=== PATIENT | female | born 1995 | race American Indian/Alaskan Native ===

== ENCOUNTER 2016-10-10 15:32 | Emergency (ER) | payer MEDICAID ==
[2016-10-10 16:56] LABS: Basophils % (Auto) 0.1 % (0.0-1.8); Eosinophils % (Auto) 1.9 % (0.0-4.3); Hematocrit 43.4 % (30.3-42.9); Mean Corpuscular HGB Conc 32 % (30-34); Mean Corpuscular Hemoglobin 28 pg (28-32); Mean Corpuscular Volume 86 fl (79-97); Platelet Count 272 K/mm3 (140-440); Red Blood Count 5.04 M/mm3 (3.65-5.03); Red Cell Distribution Width 14.6 % (13.2-15.2); White Blood Count 6.1 K/mm3 (4.5-11.0)
[2016-10-10 17:10] LABS: Anion Gap 17 mmol/L; Blood Urea Nitrogen 6 mg/dL (7-17); Calcium 9.2 mg/dL (8.4-10.2); Carbon Dioxide 24 mmol/L (22-30); Chloride 100.7 mmol/L (98-107); Glucose 97 mg/dL (65-100); Potassium 4.1 mmol/L (3.6-5.0); Sodium 138 mmol/L (137-145)
[2016-10-10 17:19] LABS: INR 0.9 (0.87-1.13)
[2016-10-10 17:20] LABS: Partial Thromboplastin Time 37.1 Sec. (24.2-36.6)
[2016-10-10 18:40] LABS: Bilirubin,Urine NEG (Negative); Blood,Urine LG (Negative); Ketones,Urine NEG (Negative); Leukocyte Esterase,Urine MOD (Negative); Mucus,Urine FEW /HPF; Nitrite,Urine NEG (Negative); Urobilinogen,Urine < 2.0 mg/dL (<2.0)
[2016-10-10 18:50] LABS: RBC,Urine > 182.0 /HPF (0.0-6.0)
[2016-10-10 18:51] LABS: WBC,Urine > 182.0 /HPF (0.0-6.0)
--- NOTE | 2016-10-10 19:08 | Cat Scan Report ---
FINAL REPORT EXAM: CT HEAD/BRAIN WO CON HISTORY: neuro deficits \T\lt; 6hrs or sx present upon awakening TECHNIQUE: CT head without contrast PRIORS: None. FINDINGS: No acute intra-axial or extra-axial hemorrhage is identified. There is no evidence of midline shift or mass effect. The ventricles and sulci are within normal limits. Mcdonald-white matter differentiation is intact. No acute parenchymal abnormalities seen. Bony calvarium is grossly intact. Visualized portions of the mastoids and paranasal sinuses are unremarkable. IMPRESSION: Negative CT head
--- NOTE | 2016-10-10 23:53 | Emergency Department Report ---
ED Syncope HPI - General Chief Complaint: Syncope Stated Complaint: FELL/HEAD LACERATION Time Seen by Provider: 10/10/16 23:52 Source: patient, family Exam Limitations: no limitations - History of Present Illness Initial Comments: Patient here reports that she fell and hit her head on the toilet. a Patient said that she got out of bed and she had the urge to urinate and she was in the [place] so she would not urinate on herself. Said that she tripped and hit her head on the toilet. Fall was witnessed by her partner and patient did not lose any consciousness but she does have a laceration to her right eyebrow. Patient said that she did not feel dizzy she was just in a hurry so she wouldn't urinate on herself. Patient reports she has urinary frequency ,denies any burning .reports urgency. She reports pain to her frontal head at 5 out of 10 that feels achy. No [id number] medication taken. She denies any dizziness , nausea or vomiting. reports goes to the bathroom frequently because she drinks a lot of water but she's been noticing that she has the urge to go more. Timing/Prior Episodes: no prior history, single episode today Precipitating Factors: Positive: other (patient running to get to the bathroom and tripped). Negative: blurred vision, confusion, diaphoresis, injury, lightheadedness, nausea, pain, recent head trauma, rapid heart beat Context: standing Loss of Consciousness: dazed Current Symptoms: back to normal, headache (located right frontal head and forehead.), injury. denies: blurred vision, chest pain, diaphoresis, dizziness , lightheadedness, loss of bladder control, loss of bowel control, motionless, nausea, pale, shallow/rapid breathing, weak/absent pulse, weakness - Related Data Allergies/Adverse Reactions: Allergies Penicillins Allergy (Verified 11/08/14 14:49) Anaphylaxis Home Medications: Ambulatory Orders Ibuprofen [Motrin 800 MG tab] 800 mg PO Q8H PRN #30 tablet 08/15/14 Ibuprofen [Motrin] 600 mg PO Q8H PRN #30 tablet 10/26/14 Acetaminophen [Non-Aspirin Pain Relief] 500 mg PO Q8H PRN #15 tablet 10/11/16 Fluconazole [Diflucan TAB] 200 mg PO ONCE PRN #1 tablet 10/11/16 Sulfamethoxazole/Trimethoprim [Bactrim DS TAB] 1 each PO BID #20 tablet ED Review of Systems ROS: Stated complaint: FELL/HEAD LACERATION Other details as noted in HPI Comment: All other systems reviewed and negative Constitutional: denies: chills, fever, weakness Eyes: denies: vision change ENT: denies: epistaxis, congestion Respiratory: no symptoms reported Cardiovascular: denies: chest pain, palpitations, edema, syncope Gastrointestinal: denies: abdominal pain, nausea, vomiting, diarrhea, constipation Genitourinary: urgency, frequency. denies: dysuria, hematuria, discharge, abnormal menses Musculoskeletal: denies: back pain, joint swelling, arthralgia, myalgia Skin: other (laceration right eyebrow) Neurological: headache (right frontal head). denies: weakness, numbness, paresthesias, confusion, abnormal gait, vertigo Psychiatric: denies: anxiety ED Past Medical Hx - Past Medical History Previous Medical History?: No - Surgical History Past Surgical History?: No - Family History Family history: no significant - Social History Smoking Status: Never Smoker Substance Use Type: Marijuana Other Social History: Patient lives with her partner - Medications Home Medications: Home Medications Medication Instructions Recorded Confirmed Last Taken Type Ibuprofen [Motrin 800 MG tab] 800 mg PO Q8H PRN #30 tablet 08/15/14 Unknown Rx Ibuprofen [Motrin] 600 mg PO Q8H PRN #30 tablet 10/26/14 Unknown Rx Acetaminophen [Non-Aspirin Pain 500 mg PO Q8H PRN #15 tablet 10/11/16 Unknown Rx Relief] Fluconazole [Diflucan TAB] 200 mg PO ONCE PRN #1 tablet 10/11/16 Unknown Rx Sulfamethoxazole/Trimethoprim 1 each PO BID #20 tablet 10/11/16 Unknown Rx [Bactrim DS TAB] ED Physical Exam - General Limitations: No Limitations General appearance: alert, in no apparent distress - Head Head exam: Present: atraumatic, normocephalic, normal inspection - Expanded Head Exam Expanded Head exam: Present: laceration (right forehead at eyebrow). Absent: abrasion, contusion, hematoma, racoon eyes, pryor's sign, general tenderness, tenderness of temporal artery, CSF rhinorrhea, CSF otorrhea - Eye Eye exam: Present: normal appearance, PERRL, EOMI. Absent: nystagmus, periorbital swelling, periorbital tenderness Pupils: Present: normal accommodation - ENT ENT exam: Present: normal exam, normal orophraynx, mucous membranes moist - Neck Neck exam: Present: normal inspection, full ROM. Absent: tenderness, meningismus, lymphadenopathy - Expanded Neck Exam Expanded Neck exam: Absent: tenderness, midline deformity, anterior neck swelling, tracheal deviation - Respiratory Respiratory exam: Present: normal lung sounds bilaterally. Absent: respiratory distress, chest wall tenderness, accessory muscle use - Cardiovascular Cardiovascular Exam: Present: regular rate, normal rhythm, normal heart sounds - GI/Abdominal GI/Abdominal exam: Present: soft, normal bowel sounds. Absent: distended, tenderness, guarding, rebound, rigid - Extremities Exam Extremities exam: Present: normal inspection, full ROM, normal capillary refill. Absent: tenderness, pedal edema, joint swelling, calf tenderness - Back Exam Back exam: Present: normal inspection, full ROM. Absent: tenderness, CVA tenderness (R), CVA tenderness (L), muscle spasm, paraspinal tenderness, vertebral tenderness, rash noted - Expanded Back Exam Expanded Back exam: Absent: saddle anesthesia Back exam: Negative Straight Leg Raising: Left, Right - Neurological Exam Neurological exam: Present: alert, oriented X3, normal gait, reflexes normal. Absent: motor sensory deficit - Expanded Neurological Exam Expanded Neurological exam: Absent: innattentive, memory loss-remote event, memory loss- recent event, ataxia, receptive aphasia, expressive aphasia, total aphasia, tremor, protecting the airway Patient oriented to: Present: person, place, time Speech: Present: fluid speech Cranial nerves: EOM's Intact: Normal, Gag Reflex: Normal, Tongue Deviation: Normal, Nystagmus: Normal, Facial Sensation: Normal Cerebellar function: Romberg: Normal Upper motor neuron: Pronator Drift: Normal, Sensory Extinction: Normal Sensory exam: Upper Extremity Light Touch: Normal, Upper Extremity Temperature: Normal, UE 2 Point Discrimination: Normal, Lower Extremity Light Touch: Normal, Lower Extremity Temperature: Normal, LE 2 Point Discrimination: Normal Motor strength exam: RUE: 5, LUE: 5, RLE: 5, LLE: 5 DTR: bicep (R): 2+, bicep (L): 2+, tricep (R): 2+, tricep (L): 2+, knee (R): 2+ , knee (L): 2+, ankle (R): 2+, ankle (L): 2+ Best Eye Response ([place]): (4) open spontaneously Best Motor Response ([place]): (6) obeys commands Best Verbal Response ([place]): (5) oriented [place] Total: 15 - Psychiatric Psychiatric exam: Present: normal affect, normal mood - Skin Skin exam: Present: warm, dry, normal color, other (2.5 cm laceration) - Expanded Skin Exam Expanded Type of lesion: Present: laceration (right eyebrow) Distribution of rash: face (right eyebrow) Description of rash: Present: size (2.5 cm), tenderness, swelling (mild swelling ). Absent: erythematous, discharge, fluctuant ED Course Vital Signs 10/10/16 10/11/16 16:33 00:20 Temperature 98.9 F Pulse Rate 70 64 Respiratory 16 18 Rate Blood Pressure 146/99 Blood Pressure 132/83 [Left] O2 Sat by Pulse 100 99 Oximetry Vital Signs 10/10/16 10/11/16 16:33 00:20 Temperature 98.9 F Pulse Rate 70 64 Respiratory 16 18 Rate Blood Pressure 146/99 Blood Pressure 132/83 [Left] O2 Sat by Pulse 100 99 Oximetry - Reevaluation(s) Reevaluation #1: 10/11/16 02:38 Patient was found to have urinary tract infection and was given 1 L for IV fluid , Levaquin 750 mg IV, Percocet 1 tablet by mouth. She has large amount of blood in her urine because she started her menses today. Urine culture sent and pending.LET a cyst and laceration after irrigated with normal saline. - Laceration /Wound Repair Right Face Wound Location: face Wound Length (cm): 2 (2.5 cm) Wound's Depth, Shape: into muscle, irregular Wound Explored: clean Irrigated w/ Saline (ccs): 350 Betadine Prep?: Yes Anesthesia: 0.5% Sensorcaine (0.5% Marcaine) Volume Anesthetic (ccs): 1 Wound Debrided: extensive Wound Repaired With: sutures Suture Size/Type: 5:0 (Vicryl) Number of Sutures: 12 Layer Closure?: Yes Deep Layer Suture Size/Type: 6:0 (Vicryl) Number Deep Layer Sutures: 4 Sterile Dressing Applied?: Yes Progress: Laceration to right brow repaired under sterile procedure. Patient tolerated procedure well and wound edges well approximated. ED Medical Decision Making - Lab Data Result diagrams: 10/10/16 16:45 10/10/16 16:45 Lab Results 10/10/16 10/10/16 10/10/16 Range/Units 16:45 16:45 16:45 WBC 6.1 (4.5-11.0) K/mm3 RBC 5.04 H (3.65-5.03) M/mm3 Hgb 14.0 (10.1-14.3) gm/dl Hct 43.4 H (30.3-42.9) % MCV 86 (79-97) fl MCH 28 (28-32) pg MCHC 32 (30-34) % RDW 14.6 (13.2-15.2) % Plt Count 272 (140-440) K/mm3 Lymph % (Auto) 23.9 (13.4-35.0) % Rooks % (Auto) 9.2 H (0.0-7.3) % Eos % (Auto) 1.9 (0.0-4.3) % Baso % (Auto) 0.1 (0.0-1.8) % Lymph # 1.5 (1.2-5.4) K/mm3 Rooks # 0.6 (0.0-0.8) K/mm3 Eos # 0.1 (0.0-0.4) K/mm3 Baso # 0.0 (0.0-0.1) K/mm3 Seg Neutrophils % 64.9 (40.0-70.0) % Seg Neutrophils # 4.0 (1.8-7.7) K/mm3 PT 12.1 L (12.2-14.9) Sec. INR 0.90 (0.87-1.13) APTT 37.1 H (24.2-36.6) Sec. Thrombin Time (15.1-19.6) Sec. Carbon Dioxide 24 (22-30) mmol/L BUN 6 L (7-17) mg/dL Creatinine 0.6 L (0.7-1.2) mg/dL Estimated GFR > 60 ml/min BUN/Creatinine Ratio 10.00 % Glucose 97 (65-100) mg/dL Calcium 9.2 (8.4-10.2) mg/dL Troponin T < 0.010 (0.00-0.029) ng/mL Urine Color (Yellow) Urine Turbidity (Clear) Urine pH (5.0-7.0) Ur Specific [place] (1.003-1.030) Urine Protein (Negative) mg/dL Urine Glucose (UA) (Negative) mg/dL Urine Ketones (Negative) mg/dL Urine Blood (Negative) Urine Nitrite (Negative) Urine Bilirubin (Negative) Urine Urobilinogen (<2.0) mg/dL Ur Leukocyte Esterase (Negative) Urine WBC (Auto) (0.0-6.0) /HPF Urine RBC (Auto) (0.0-6.0) /HPF U Epithel Cells (Auto) (0-13.0) /HPF Ur Transition Epith Cell /HPF Urine Mucus /HPF Urine HCG, Qual (Negative) 10/10/16 10/10/16 Range/Units 16:45 17:20 WBC (4.5-11.0) K/mm3 RBC (3.65-5.03) M/mm3 Hgb (10.1-14.3) gm/dl Hct (30.3-42.9) % MCV (79-97) fl MCH (28-32) pg MCHC (30-34) % RDW (13.2-15.2) % Plt Count (140-440) K/mm3 Lymph % (Auto) (13.4-35.0) % Rooks % (Auto) (0.0-7.3) % Eos % (Auto) (0.0-4.3) % Baso % (Auto) (0.0-1.8) % Lymph # (1.2-5.4) K/mm3 Rooks # (0.0-0.8) K/mm3 Eos # (0.0-0.4) K/mm3 Baso # (0.0-0.1) K/mm3 Seg Neutrophils % (40.0-70.0) % Seg Neutrophils # (1.8-7.7) K/mm3 PT (12.2-14.9) Sec. INR (0.87-1.13) APTT (24.2-36.6) Sec. Thrombin Time 16.0 (15.1-19.6) Sec. Carbon Dioxide (22-30) mmol/L BUN (7-17) mg/dL Creatinine (0.7-1.2) mg/dL Estimated GFR ml/min BUN/Creatinine Ratio % Glucose (65-100) mg/dL Calcium (8.4-10.2) mg/dL Troponin T (0.00-0.029) ng/mL Urine Color Red (Yellow) Urine Turbidity Cloudy (Clear) Urine pH 6.0 (5.0-7.0) Ur Specific [place] 1.018 (1.003-1.030) Urine Protein 100 mg/dl (Negative) mg/dL Urine Glucose (UA) Neg (Negative) mg/dL Urine Ketones Neg (Negative) mg/dL Urine Blood Lg (Negative) Urine Nitrite Neg (Negative) Urine Bilirubin Neg (Negative) Urine Urobilinogen < 2.0 (<2.0) mg/dL Ur Leukocyte Esterase Mod (Negative) Urine WBC (Auto) > 182.0 H (0.0-6.0) /HPF Urine RBC (Auto) > 182.0 (0.0-6.0) /HPF U Epithel Cells (Auto) 30.0 H (0-13.0) /HPF Ur Transition Epith Cell 3 /HPF Urine Mucus Few /HPF Urine HCG, Qual Negative (Negative) - EKG Data -: EKG Interpreted by Me (attending physician) EKG shows normal: sinus rhythm (66 bpm) Rate: normal - EKG Data Interpretation: no acute changes - Radiology Data Radiology results: report reviewed CT scan of the head reveals no acute intracranial processes. - Medical Decision Making ED course: Pt with accidental fall and closed head injury with laceration to right eyebrow. CT scan of her head reveals that she has no intracranial hemorrhage and based on Nexus criteria there is no need for imaging of patient neck. Patient with laceration of the face that was appeared. Posttraumatic headache and also acute cystitis with hematuria. CBC stable, BMP stable, urinalysis revealed urinary tract infection. Patient given information on CT scan and lab results and was undescended diagnosis and treatment plan. Diagnostic/labs: See radiology report for CT scan results. The lab section for CBC, BMP, urinalysis and PT /PTT results. Assessment/plan 1. Accidental fall 2. Laceration of the face status post repair that complication 3. Closed head injury without loss of consciousness 4. Posttraumatic headache,acute 5. Acute cystitis with hematuria Patient discharged home in stable condition with prescription for plain Tylenol when necessary for pain, Bactrim DS to cover urinary tract infection and Diflucan on 1 tablet for yeast prophylaxis patient request . Patient instructed to follow up with primary care physician status post fall with laceration and closed head injury. Critical care attestation.: If time is entered above; I have spent that time in minutes in the direct care of this critically ill patient, excluding procedure time. ED Disposition Clinical Impression: Acute cystitis with hematuria Accidental fall Qualifiers: Encounter type: initial encounter Qualified Code(s): W19.XXXA - Unspecified fall, initial encounter Laceration of face without complication Qualifiers: Encounter type: initial encounter Qualified Code(s): S01.81XA - Laceration without foreign body of other part of head, initial encounter Closed head injury without loss of consciousness Qualifiers: Encounter type: initial encounter Qualified Code(s): S09.90XA - Unspecified injury of head, initial encounter Headache, post-traumatic, acute Qualifiers: Intractability: not intractable Qualified Code(s): G44.319 - Acute post- traumatic headache, not intractable Disposition: DC- TO HOME OR SELFCARE Is pt being admited?: No Does the pt Need Aspirin: No Condition: Stable Instructions: Laceration (ED), Urinary Tract Infection in Women (ED), Minor Head Injury (ED), Acute Headache (ED), Fall Prevention (ED), Absorbable Suture Care (ED) Additional Instructions: Please follow-up with your primary care physician tomorrow. Please read discharge instructions on closed head injury Patient partner is a nurse and understands how to monitor patient and what to watch for with closed head injury Your sutures are absorbable CU don't have to return to the emergency room to have them removed Please keep laceration site clean and dry Antibiotic as prescribed for urinary tract infection and also to prevent infection at laceration site These increase her fluid intake as this will help to flush her bladder out You can take Tylenol plain for headache if needed Prescriptions: Acetaminophen [Non-Aspirin Pain Relief] 500 mg PO Q8H PRN #15 tablet PRN Reason: Headache Fluconazole [Diflucan TAB] 200 mg PO ONCE PRN #1 tablet PRN Reason: Yeast prophylaxis Sulfamethoxazole/Trimethoprim [Bactrim DS TAB] 1 each PO BID #20 tablet Referrals: PRIMARY CARE, [Primary Care Provider] - 10/12/16 Forms: Accompanied Note, Work/School Release Form(ED)
[2016-10-10] MEDS ORDERED: LEVAQUIN 750MG/150ML 750 MG/150 ML BAG IV ONE (23:57)
[2016-10-10] MEDS ORDERED: MARCAINE 0.5% INFILTRATI ONE (23:57)
[2016-10-10] MEDS ORDERED: NACL 0.9% 1000 ML 1,000 ML IV ONE (23:57)
[2016-10-10] MEDS ORDERED: NACL 0.9% IR ONE (23:57)
[2016-10-11] MEDS ORDERED: LET TOPICAL TP ONE (00:07)
[2016-10-11] MEDS ORDERED: PERCOCET 5/325 PO ONE (00:08)
[2016-10-11 02:53] VITALS: BP 132/83
== END 2016-10-11 03:41 | disposition home or self-care (01) ==
LOC: ED 15:32
DX: S09.90XA Unspecified injury of head, initial encounter (principal); S01.81XA Laceration without foreign body of other part of head, initial encounter; G44.319 Acute post-traumatic headache, not intractable; N30.01 Acute cystitis with hematuria; F12.90 Cannabis use, unspecified, uncomplicated; Z88.0 Allergy status to penicillin; W19.XXXA Unspecified fall, initial encounter; Y93.89 Activity, other specified; Y99.9 Unspecified external cause status; Y92.89 Other specified places as the place of occurrence of the external cause
CPT/HCPCS: 12051; 36415; 70450; 80048; 81001; 81025; 84484; 85025; 85610; 85670; 85730; 93005; 93010; 96365; 96366; 99285; J1956; J7030

== ENCOUNTER 2019-06-01 21:24 | Emergency (ER) | payer SELFPAY ==
[2019-06-01 21:29] VITALS: BP 141/88
[2019-06-01] MEDS ORDERED: dexAMETHasone 20 MG/5 ML VIAL IM ONE (22:18)
[2019-06-01] MEDS ORDERED: IPRATROPIUM/ALBUTEROL SULFATE 3 ML AMPUL.NEB IH ONE (22:18)
[2019-06-01] MEDS ORDERED: ACETAMINOPHEN 500 MG TAB PO ONE (22:20)
--- NOTE | 2019-06-01 22:59 | XRay Report ---
CHEST 2 VIEWS INDICATION / CLINICAL INFORMATION: Cough and difficulty breathing. COMPARISON: None available. FINDINGS: SUPPORT DEVICES: None. HEART / MEDIASTINUM: The heart size and pulmonary vasculature are normal. LUNGS / PLEURA: No significant pulmonary or pleural abnormality. No pneumothorax. ADDITIONAL FINDINGS: There are bilateral nipple piercings. IMPRESSION: No acute findings. Signer Name: Akin Bond MD Signed: 06/01/2019 10:54 PM Workstation Name: [id number]
[2019-06-01 23:32] LABS: Bilirubin,Urine NEG (Negative); Blood,Urine NEG (Negative); Color,Urine Yellow (Yellow); Protein,Urine <15 mg/dL mg/dL (Negative); Urobilinogen,Urine < 2.0 mg/dL (<2.0); WBC,Urine < 1.0 /HPF (0.0-6.0)
[2019-06-01 23:34] LABS: HCG Qualitative,Urine Negative (Negative)
--- NOTE | 2019-06-01 23:57 | Emergency Department Report ---
- General Chief Complaint: Dyspnea/Respdistress Stated Complaint: SOB Source: patient, EMS Mode of arrival: Ambulatory Limitations: No Limitations - History of Present Illness Initial Comments: Patient is a 23-year-old female who presented to the ED with complaint of acute onset persistent nasal and sinus congestion, frontal sinus pressure, persistent dry cough with intermittent wheezing for the last 1 week, worse in the last 2 days. Patient states that she has been taking [id number] medication as needed with no relief. Patient denies dizziness, syncope, fever, chills, nausea, vomiting, diarrhea, abdominal pain, chest pain, dysuria, urinary frequency and urgency, syncope or change in vision. Patient states that no one else at home is had similar symptoms. MD Complaint: cough, rhinorrhea, nasal congestion, sinus pain -: week(s) (1) Severity: moderate Severity scale (0 -10): 4 Quality: dull, aching Consistency: constant Improves With: nothing Worsens With: nothing Associated Symptoms: denies other symptoms, headache, rhinorrhea, nasal congestion, sore throat, cough, shortness of breath. denies: fever, chills, myalgias, diaphoresis, chest pain, abdominal pain, nausea, vomiting, diarrhea, dysuria, rash, right sweats, weight loss, epistaxis, hoarseness, other Treatments Prior to Arrival: none - Related Data Previous Rx's Medication Instructions Recorded Last Taken Type Ibuprofen [Motrin 800 MG tab] 800 mg PO Q8H PRN #30 tablet 08/15/14 Unknown Rx Ibuprofen [Motrin] 600 mg PO Q8H PRN #30 tablet 10/26/14 Unknown Rx Acetaminophen [Non-Aspirin Pain 500 mg PO Q8H PRN #15 tablet 10/11/16 Unknown Rx Relief] Fluconazole [Diflucan TAB] 200 mg PO ONCE PRN #1 tablet 10/11/16 Unknown Rx Sulfamethoxazole/Trimethoprim 1 each PO BID #20 tablet 10/11/16 Unknown Rx [Bactrim DS TAB] Azithromycin [Zithromax Z-JULIANNE] 250 mg PO DAILY #6 tablet 06/01/19 Unknown Rx Benzonatate [Tessalon Perles] 100 mg PO Q8HR #30 capsule 06/01/19 Unknown Rx Cetirizine HCl [Zyrtec 10mg tab] 10 mg PO DAILY #30 tablet 06/01/19 Unknown Rx methylPREDNISolone [Medrol 4MG 4 mg PO DAILY #21 tab.ds.pk 06/01/19 Unknown Rx DOSEPAK (21 tabs)] Allergies Allergy/AdvReac Type Severity Reaction Status Date / Time Penicillins Allergy Anaphylaxis Verified 11/08/14 14:49 ED Review of Systems ROS: Stated complaint: SOB Other details as noted in HPI Constitutional: denies: chills, fever Eyes: denies: eye pain, eye discharge, vision change ENT: throat pain, congestion. denies: ear pain Respiratory: cough, shortness of breath, wheezing Cardiovascular: denies: chest pain, palpitations Endocrine: no symptoms reported Gastrointestinal: denies: abdominal pain, nausea, diarrhea Genitourinary: denies: urgency, dysuria, discharge Musculoskeletal: denies: back pain, joint swelling, arthralgia Skin: denies: rash, lesions Neurological: headache. denies: weakness, paresthesias Psychiatric: denies: anxiety, depression Hematological/Lymphatic: denies: easy bleeding, easy bruising ED Past Medical Hx - Past Medical History Previous Medical History?: Yes Additional medical history: Bronchitis - Surgical History Past Surgical History?: No - Social History Smoking Status: Current Every Day Smoker Substance Use Type: Alcohol - Medications Home Medications: Home Medications Medication Instructions Recorded Confirmed Last Taken Type Ibuprofen [Motrin 800 MG tab] 800 mg PO Q8H PRN #30 tablet 08/15/14 Unknown Rx Ibuprofen [Motrin] 600 mg PO Q8H PRN #30 tablet 10/26/14 Unknown Rx Acetaminophen [Non-Aspirin Pain 500 mg PO Q8H PRN #15 tablet 10/11/16 Unknown Rx Relief] Fluconazole [Diflucan TAB] 200 mg PO ONCE PRN #1 tablet 10/11/16 Unknown Rx Sulfamethoxazole/Trimethoprim 1 each PO BID #20 tablet 10/11/16 Unknown Rx [Bactrim DS TAB] Azithromycin [Zithromax Z-JULIANNE] 250 mg PO DAILY #6 tablet 06/01/19 Unknown Rx Benzonatate [Tessalon Perles] 100 mg PO Q8HR #30 capsule 06/01/19 Unknown Rx Cetirizine HCl [Zyrtec 10mg tab] 10 mg PO DAILY #30 tablet 06/01/19 Unknown Rx methylPREDNISolone [Medrol 4MG 4 mg PO DAILY #21 tab.ds.pk 06/01/19 Unknown Rx DOSEPAK (21 tabs)] ED Physical Exam - General Limitations: No Limitations General appearance: alert, in no apparent distress - Head Head exam: Present: atraumatic, normocephalic, normal inspection - Eye Eye exam: Present: normal appearance, PERRL, EOMI Pupils: Present: normal accommodation - ENT ENT exam: Present: normal orophraynx, mucous membranes moist, TM's normal bilaterally, normal external ear exam, other (Grossly congested nasal passages) - Neck Neck exam: Present: normal inspection, full ROM. Absent: tenderness, lymphadenopathy - Respiratory Respiratory exam: Present: wheezes (Mildly diffuse coarse wheezes). Absent: res piratory distress, rales, rhonchi, chest wall tenderness, accessory muscle use, decreased breath sounds, prolonged expiratory - Cardiovascular Cardiovascular Exam: Present: regular rate, normal rhythm, normal heart sounds. Absent: systolic murmur, diastolic murmur, rubs, gallop - GI/Abdominal GI/Abdominal exam: Present: soft, normal bowel sounds. Absent: tenderness, guarding, hyperactive bowel sounds, hypoactive bowel sounds, organomegaly - Extremities Exam Extremities exam: Present: normal inspection, full ROM, normal capillary refill - Back Exam Back exam: Present: normal inspection, full ROM. Absent: tenderness, CVA tenderness (R), CVA tenderness (L), muscle spasm, paraspinal tenderness - Neurological Exam Neurological exam: Present: alert, oriented X3, CN II-XII intact, normal gait, reflexes normal - Psychiatric Psychiatric exam: Present: normal affect, normal mood - Skin Skin exam: Present: warm, dry, intact, normal color. Absent: rash ED Course Vital Signs 06/01/19 06/01/19 21:27 21:40 Temperature 97.8 F Pulse Rate 100 H 88 Respiratory 22 17 Rate Blood Pressure 141/88 O2 Sat by Pulse 100 99 Oximetry ED Medical Decision Making - Radiology Data Radiology results: report reviewed, image reviewed Chest x-ray shows no acute cardiopulmonary abnormalities or pneumonitis, pleural effusion or pneumothorax - Medical Decision Making This is a 23-year-old female who presented to the ED with complaint of acute onset persistent nasal and sinus congestion, frontal sinus pressure, persistent dry cough with intermittent wheezing for the last 1 week, worse in the last 2 days. Patient states that she has been taking [id number] medication as needed with no relief. In the ED, patient is alert and oriented x3 and is not in any distress. Patient was treated in the ED with DuoNeb, also given steroid. Chest x-ray shows no acute cardiopulmonary abnormalities or pneumonitis. On reevaluation, patient felt better and was discharged home on medications and advised to follow-up with her primary care physician in 7 to 10 days for reevaluation. Patient symptoms are likely due to acute bronchitis and acute upper respiratory infection. - Differential Diagnosis Acute bronchitis; URI; Pneumonia; Allergic rhinitis Critical care attestation.: If time is entered above; I have spent that time in minutes in the direct care of this critically ill patient, excluding procedure time. ED Disposition Clinical Impression: Acute upper respiratory infection Acute bronchitis Qualifiers: Bronchitis organism: other organism Qualified Code(s): J20.8 - Acute bronchitis due to other specified organisms Disposition: DC-01 TO HOME OR SELFCARE Is pt being admited?: No Does the pt Need Aspirin: No Condition: Stable Instructions: Acute Bronchitis (ED), Upper Respiratory Infection (ED), Allergic Rhinitis (ED) Additional Instructions: Take medication with food, drink plenty of fluids and follow-up with your primary care physician in 5 to 7 days for reevaluation. Return to the ED immediately if symptoms get worse. Prescriptions: methylPREDNISolone [Medrol 4MG DOSEPAK (21 tabs)] 4 mg PO DAILY #21 tab.ds.pk Benzonatate [Tessalon Perles] 100 mg PO Q8HR #30 capsule Azithromycin [Zithromax Z-JULIANNE] 250 mg PO DAILY #6 tablet Cetirizine HCl [Zyrtec 10mg tab] 10 mg PO DAILY #30 tablet Referrals: [facility] [Provider Group] - 3-5 Days Forms: Work/School Release Form(ED) Time of Disposition: 23:54 Print Language: AUSTRIAN
== END 2019-06-01 23:59 | disposition home or self-care (01) ==
LOC: ED 21:24
DX: J20.8 Acute bronchitis due to other specified organisms (principal); J06.9 Acute upper respiratory infection, unspecified; F17.200 Nicotine dependence, unspecified, uncomplicated
CPT/HCPCS: 71046; 81001; 81025; 96372; 99284; J1100